=== PATIENT | male | born 1955 | race Caucasian/White ===

== ENCOUNTER 2020-08-25 18:17 | Emergency (ER) | payer BC, OTHER, SELFPAY ==
--- NOTE | 2020-08-25 19:10 | RAD ---
RIGHT ANKLE FIVE VIEWS: History: Injury with pain. FINDINGS: Intramedullary francie in the tibia transfixing distal tibia fracture. Old fibular fracture also noted. Degenerative changes at the ankle. No acute fracture identified. IMPRESSION: No evidence of acute fracture. POS: AGW
--- NOTE | 2020-08-25 21:01 | RAD ---
Right foot 3 views HISTORY: Injury. FINDINGS: Lisfranc joint alignment is anatomic. Plantar arch is maintained. Scattered mild degenerative changes. Old healed injury of the fourth metatarsal neck. Partially visualized internal fixation of the tibial shaft. No acute fracture, dislocation, or aggressive osseous erosions. Moderate sized plantar enthesophytes at the inferior aspect of the calcaneus. IMPRESSION : No acute abnormalities are demonstrated. Plantar heel spur.
[2020-08-25] MEDS ORDERED: Ketorolac Tromethamine 30 MG/ML VIAL ONE (21:11)
[2020-08-25] MEDS ORDERED: Morphine 10 MG/ML VIAL ONE (21:11)
== END 2020-08-25 21:44 | disposition home or self-care (01) ==
LOC: MADERS 18:17
DX: S93.601A Unspecified sprain of right foot, initial encounter (principal); E11.40 Type 2 diabetes mellitus with diabetic neuropathy, unspecified; E78.5 Hyperlipidemia, unspecified; I10 Essential (primary) hypertension; E78.00 Pure hypercholesterolemia, unspecified; F17.210 Nicotine dependence, cigarettes, uncomplicated; Z79.899 Other long term (current) drug therapy; W50.2XXA Accidental twist by another person, initial encounter
CPT/HCPCS: 96372; J1885; J2270

== ENCOUNTER 2020-09-07 18:26 | Emergency (ER) | payer SELFPAY ==
[2020-09-07] MEDS ORDERED: Bacitracin 1 PK ONE ×2 (20:32→20:37)
== END 2020-09-07 21:12 | disposition home or self-care (01) ==
LOC: MADERS 18:26
DX: S90.821A Blister (nonthermal), right foot, initial encounter (principal); R60.0 Localized edema; I20.9 Angina pectoris, unspecified; E11.9 Type 2 diabetes mellitus without complications; E78.5 Hyperlipidemia, unspecified; E78.00 Pure hypercholesterolemia, unspecified; I10 Essential (primary) hypertension; F17.210 Nicotine dependence, cigarettes, uncomplicated; Z85.46 Personal history of malignant neoplasm of prostate; Z79.899 Other long term (current) drug therapy; X50.9XXA Other and unspecified overexertion or strenuous movements or postures, initial encounter
CPT/HCPCS: 99283

== ENCOUNTER 2021-05-05 10:29 | Outpatient (CLI) | payer OTHER ==
[2021-05-05 10:59] LABS: #Basophils 0.1 thou/uL (0.0-0.2); #Eosinphils 0.4 thou/uL (0.0-0.7); #Lymphocytes 1.5 thou/uL (1.20-3.40); #Monocytes 0.7 thou/uL (0.11-0.59); #Neutrophils 7.3 thou/uL (1.40-6.50); %Basophils 1.4 % (0.0-1.0); %Eosinophils 3.9 % (0.0-10.0); %Lymphocytes 14.5 % (21.0-51.0); %Monocytes 7.4 % (0.0-10.0); %Neutrophils 72.8 % (42.0-75.0); Hemoglobin 13.6 g/dL (14.0-18.0); Mean Corpuscular HGB CONC 32.1 g/dL (32.0-36.0); Mean Corpuscular Volume 93.4 fL (78.0-98.0); Mean Platelet Volume 7.4 fL (7.4-10.4); Platelet Count 276 thou/uL (130-400); Red Blood Cell (RBC) Count 4.55 mill/uL (4.70-6.10)
[2021-05-05 11:14] LABS: Anion Gap 14 mmol/L (10-20); BUN (Urea Nitrogen) 33 mg/dL (8.4-25.7); Calc. Creatinine Clearance 0 mL/min (70-130); Calcium 9.6 mg/dL (7.8-10.44); Carbon Dioxide 20 mmol/L (23-31); Chloride 108 mmol/L (98-107); Glucose 151 mg/dL (80-115); Potassium 4.7 mmol/L (3.5-5.1); Sodium 137 mmol/L (136-145)
[2021-05-05 23:48] LABS: SARS-CoV-2 PCR by NAA Not Detected (NotDetected)
== END 2021-05-05 10:30 | disposition home or self-care (01) ==
LOC: MADLAB 10:29
PROVIDERS: ATTEND Podiatrist Foot & Ankle Surgery
DX: Z01.812 Encounter for preprocedural laboratory examination (principal); Z20.822 Contact with and (suspected) exposure to COVID-19
CPT/HCPCS: 36415; 80048; 85025; U0003; U0005

== ENCOUNTER 2022-10-28 11:40 | Inpatient (IN) | payer MEDICARE, OTHER ==
[2022-10-28] MEDS ORDERED: traMADol HCl 50 MG TAB PO PRN (15:37)
[2022-10-28] MEDS ORDERED: Bisacodyl 10 MG SUPP PR PRN (15:38)
[2022-10-28] MEDS ORDERED: Bisacodyl 5 MG TAB PO PRN (15:38)
[2022-10-28] MEDS ORDERED: Dextrose 50% Abboject 50 ML SYRINGE SLOW IVP PRN (15:40)
[2022-10-28] MEDS ORDERED: HumaLOG 300 UNITS/3 ML VIAL SC PRN ×2 (15:40)
[2022-10-28] MEDS: glipiZIDE 5 MG TAB PO SCH (17:16)
[2022-10-28] MEDS: metFORMIN 500 MG TAB PO SCH (17:16)
[2022-10-28] MEDS ORDERED: Emollient 15 oz bottle 450 ML, Triamcinolone Acetonide 200 MG TOP PRN (17:45)
[2022-10-28] MEDS: Atorvastatin Calcium 10 MG TAB PO SCH (20:34)
[2022-10-28] MEDS: Famotidine 20 MG TAB PO SCH (20:34)
[2022-10-28] MEDS: Gabapentin 300 MG CAP PO SCH (20:34)
[2022-10-28] MEDS: Sulfameth/Trimethoprim DS 800-160mg TAB PO SCH (20:35)
[2022-10-28] MEDS: Carvedilol 12.5 MG TAB PO SCH (20:35)
[2022-10-28] MEDS: Acetaminophen 325 MG TAB PO PRN (21:52)
[2022-10-29 05:29] LABS: Eosinophils 6 % (0-10); Hemoglobin 9.2 g/dL (14.0-18.0); Lymphocytes 13 % (21-51); MDiff Complete? YES; Mean Corpuscular HGB CONC 32.3 g/dL (32.0-36.0); Mean Corpuscular Hemoglobin 31.7 pg (27.0-31.0); Mean Corpuscular Volume 98.2 fl (78.0-98.0); Monocytes 9 % (0-10); Neutrophil 72 % (42-75); Platelet Count 201 10x3/uL (130-400); RBC Distribution Width 13.7 % (11.5-14.5); Red Blood Cell (RBC) Count 2.89 mill/uL (4.70-6.10); White Blood Cell (WBC) Count 8.1 10x3/uL (4.8-10.8)
[2022-10-29 05:36] LABS: ALT (SGPT) 13 U/L (8-55); AST (SGOT) 13 U/L (5-34); Albumin 2.9 g/dL (3.4-4.8); Alkaline Phosphatase 54 U/L (40-110); Anion Gap 14 mmol/L (10-20); BUN (Urea Nitrogen) 48 mg/dL (8.4-25.7); Bilirubin, Total 0.3 mg/dL (0.2-1.2); Calc. Creatinine Clearance 53 mL/min (70-130); Calcium 9.1 mg/dL (7.8-10.44); Carbon Dioxide 18 mmol/L (23-31); Chloride 112 mmol/L (98-107); Estimated GFR 41; Globulin 2.5 g/dL (2.4-3.5); Glucose 89 mg/dL (80-115); Potassium 5.2 mmol/L (3.5-5.1); Protein, Total 5.4 g/dL (5.8-8.1); Sodium 139 mmol/L (136-145)
[2022-10-29] MEDS: Famotidine 20 MG TAB PO SCH ×2 (08:38→20:03)
[2022-10-29] MEDS: glipiZIDE 5 MG TAB PO SCH ×2 (08:38→17:20)
[2022-10-29] MEDS: Sulfameth/Trimethoprim DS 800-160mg TAB PO SCH ×2 (08:39→20:03)
[2022-10-29] MEDS: Aspirin 81 mg Enteric Coated Tablet PO SCH (08:39)
[2022-10-29] MEDS: Gabapentin 300 MG CAP PO SCH ×3 (08:39→20:04)
[2022-10-29] MEDS: Clopidogrel Bisulfate 75 MG TAB PO SCH (08:40)
[2022-10-29] MEDS: Carvedilol 12.5 MG TAB PO SCH ×2 (08:40→20:03)
[2022-10-29] MEDS: metFORMIN 500 MG TAB PO SCH ×2 (08:40→17:20)
[2022-10-29] MEDS: Emollient 15 oz bottle 450 ML, Triamcinolone Acetonide 200 MG TOP SCH ×2 (08:40→20:06)
[2022-10-29] MEDS: Atorvastatin Calcium 10 MG TAB PO SCH (20:04)
[2022-10-29] MEDS: Acetaminophen 325 MG TAB PO PRN (22:09)
[2022-10-30] MEDS: glipiZIDE 5 MG TAB PO SCH ×2 (08:45→16:05)
[2022-10-30] MEDS: Sulfameth/Trimethoprim DS 800-160mg TAB PO SCH ×2 (08:46→20:40)
[2022-10-30] MEDS: Aspirin 81 mg Enteric Coated Tablet PO SCH (08:47)
[2022-10-30] MEDS: Famotidine 20 MG TAB PO SCH ×2 (08:47→20:40)
[2022-10-30] MEDS: Gabapentin 300 MG CAP PO SCH ×3 (08:48→20:40)
[2022-10-30] MEDS: Carvedilol 12.5 MG TAB PO SCH ×2 (08:48→20:40)
[2022-10-30] MEDS: Clopidogrel Bisulfate 75 MG TAB PO SCH (08:48)
[2022-10-30] MEDS: metFORMIN 500 MG TAB PO SCH ×2 (08:48→16:05)
[2022-10-30] MEDS: Emollient 15 oz bottle 450 ML, Triamcinolone Acetonide 200 MG TOP SCH ×2 (08:49→20:41)
[2022-10-30] MEDS: Atorvastatin Calcium 10 MG TAB PO SCH (20:40)
[2022-10-31] MEDS: Famotidine 20 MG TAB PO SCH ×2 (08:03→20:28)
[2022-10-31] MEDS: Clopidogrel Bisulfate 75 MG TAB PO SCH (08:03)
[2022-10-31] MEDS: Aspirin 81 mg Enteric Coated Tablet PO SCH (08:03)
[2022-10-31] MEDS: glipiZIDE 5 MG TAB PO SCH ×2 (08:03→17:06)
[2022-10-31] MEDS: Gabapentin 300 MG CAP PO SCH ×3 (08:03→20:28)
[2022-10-31] MEDS: Sulfameth/Trimethoprim DS 800-160mg TAB PO SCH ×2 (08:04→20:28)
[2022-10-31] MEDS: metFORMIN 500 MG TAB PO SCH ×2 (08:04→17:06)
[2022-10-31] MEDS: Emollient 15 oz bottle 450 ML, Triamcinolone Acetonide 200 MG TOP SCH ×2 (08:08→20:29)
[2022-10-31] MEDS: Carvedilol 12.5 MG TAB PO SCH ×2 (08:08→20:28)
[2022-10-31] MEDS: Acetaminophen 325 MG TAB PO PRN ×2 (09:32→21:34)
[2022-10-31] MEDS ORDERED: traMADol HCl 50 MG TAB PO PRN (13:19)
[2022-10-31] MEDS: Atorvastatin Calcium 10 MG TAB PO SCH (20:28)
[2022-11-01] MEDS: glipiZIDE 5 MG TAB PO SCH ×2 (09:36→17:14)
[2022-11-01] MEDS: Clopidogrel Bisulfate 75 MG TAB PO SCH (09:37)
[2022-11-01] MEDS: Gabapentin 300 MG CAP PO SCH ×3 (09:37→21:08)
[2022-11-01] MEDS: metFORMIN 500 MG TAB PO SCH ×2 (09:37→17:14)
[2022-11-01] MEDS: Sulfameth/Trimethoprim DS 800-160mg TAB PO SCH ×2 (09:37→21:09)
[2022-11-01] MEDS: Famotidine 20 MG TAB PO SCH ×2 (09:37→21:09)
[2022-11-01] MEDS: Carvedilol 12.5 MG TAB PO SCH ×2 (09:37→21:08)
[2022-11-01] MEDS: Aspirin 81 mg Enteric Coated Tablet PO SCH (09:38)
[2022-11-01] MEDS: Emollient 15 oz bottle 450 ML, Triamcinolone Acetonide 200 MG TOP SCH ×2 (09:38→21:10)
[2022-11-01] MEDS: Atorvastatin Calcium 10 MG TAB PO SCH (21:08)
[2022-11-01] MEDS: Acetaminophen 325 MG TAB PO PRN (23:55)
[2022-11-02] MEDS: Carvedilol 12.5 MG TAB PO SCH ×2 (08:38→20:53)
[2022-11-02] MEDS: glipiZIDE 5 MG TAB PO SCH ×2 (08:38→17:17)
[2022-11-02] MEDS: metFORMIN 500 MG TAB PO SCH ×2 (08:38→17:17)
[2022-11-02] MEDS: Famotidine 20 MG TAB PO SCH ×2 (08:38→20:53)
[2022-11-02] MEDS: Gabapentin 300 MG CAP PO SCH ×3 (08:38→20:53)
[2022-11-02] MEDS: Aspirin 81 mg Enteric Coated Tablet PO SCH (08:38)
[2022-11-02] MEDS: Sulfameth/Trimethoprim DS 800-160mg TAB PO SCH ×2 (08:38→20:53)
[2022-11-02] MEDS: Clopidogrel Bisulfate 75 MG TAB PO SCH (08:38)
[2022-11-02] MEDS: Emollient 15 oz bottle 450 ML, Triamcinolone Acetonide 200 MG TOP SCH ×2 (08:39→20:54)
[2022-11-02] MEDS: Atorvastatin Calcium 10 MG TAB PO SCH (20:52)
[2022-11-03] MEDS: glipiZIDE 5 MG TAB PO SCH ×2 (09:23→16:47)
[2022-11-03] MEDS: metFORMIN 500 MG TAB PO SCH ×2 (09:24→16:47)
[2022-11-03] MEDS: Famotidine 20 MG TAB PO SCH ×2 (09:24→20:56)
[2022-11-03] MEDS: Sulfameth/Trimethoprim DS 800-160mg TAB PO SCH ×2 (09:24→20:57)
[2022-11-03] MEDS: Aspirin 81 mg Enteric Coated Tablet PO SCH (09:24)
[2022-11-03] MEDS: Clopidogrel Bisulfate 75 MG TAB PO SCH (09:24)
[2022-11-03] MEDS: Carvedilol 12.5 MG TAB PO SCH ×2 (09:24→20:56)
[2022-11-03] MEDS: Gabapentin 300 MG CAP PO SCH ×3 (09:24→20:56)
[2022-11-03] MEDS: Emollient 15 oz bottle 450 ML, Triamcinolone Acetonide 200 MG TOP SCH ×2 (09:25→20:57)
[2022-11-03 14:58] VITALS: BMI 29.0
[2022-11-03] MEDS: Atorvastatin Calcium 10 MG TAB PO SCH (20:56)
[2022-11-04] MEDS: Carvedilol 12.5 MG TAB PO SCH (08:32)
[2022-11-04] MEDS: Sulfameth/Trimethoprim DS 800-160mg TAB PO SCH ×2 (08:32→17:14)
[2022-11-04] MEDS: Clopidogrel Bisulfate 75 MG TAB PO SCH (08:33)
[2022-11-04] MEDS: Gabapentin 300 MG CAP PO SCH ×2 (08:33→17:15)
[2022-11-04] MEDS: Famotidine 20 MG TAB PO SCH (08:33)
[2022-11-04] MEDS: glipiZIDE 5 MG TAB PO SCH ×2 (08:33→17:15)
[2022-11-04] MEDS: metFORMIN 500 MG TAB PO SCH ×2 (08:33→17:15)
[2022-11-04] MEDS: Aspirin 81 mg Enteric Coated Tablet PO SCH (08:33)
[2022-11-04] MEDS: Emollient 15 oz bottle 450 ML, Triamcinolone Acetonide 200 MG TOP SCH (08:34)
[2022-11-04 13:54] LABS: Anion Gap 11 mmol/L (10-20); BUN (Urea Nitrogen) 47 mg/dL (8.4-25.7); Calc. Creatinine Clearance 45 mL/min (70-130); Calcium 8.5 mg/dL (7.8-10.44); Carbon Dioxide 16 mmol/L (23-31); Chloride 113 mmol/L (98-107); Estimated GFR 35; Glucose 136 mg/dL (80-115); Potassium 5.3 mmol/L (3.5-5.1); Sodium 135 mmol/L (136-145)
[2022-11-04 16:46] VITALS: BP 143/73; TEMP 98.1
== END 2022-11-04 19:45 | disposition home or self-care (01) | DRG 603 ==
LOC: MADMS 13:42
PROVIDERS: ADMIT Family Medicine; ATTEND Family Medicine
DX: L03.115 Cellulitis of right lower limb (principal); I13.0 Hypertensive heart and chronic kidney disease with heart failure and stage 1 through stage 4 chronic kidney disease, or unspecified chronic kidney disease; N17.9 Acute kidney failure, unspecified; R53.1 Weakness; L02.415 Cutaneous abscess of right lower limb; S81.801A Unspecified open wound, right lower leg, initial encounter; I50.9 Heart failure, unspecified; E78.5 Hyperlipidemia, unspecified; E11.22 Type 2 diabetes mellitus with diabetic chronic kidney disease; B95.62 Methicillin resistant Staphylococcus aureus infection as the cause of diseases classified elsewhere; N18.31 Chronic kidney disease, stage 3a; R53.81 Other malaise; E11.51 Type 2 diabetes mellitus with diabetic peripheral angiopathy without gangrene; F17.210 Nicotine dependence, cigarettes, uncomplicated; Z79.82 Long term (current) use of aspirin; Z79.899 Other long term (current) drug therapy; Z89.431 Acquired absence of right foot; Z98.890 Other specified postprocedural states; Z79.84 Long term (current) use of oral hypoglycemic drugs
CPT/HCPCS: 36415; 36416; 80048; 80053; 85025; J1650

== ENCOUNTER 2022-11-30 10:32 | Emergency (ER) | payer MEDICARE, OTHER ==
[~2022-11-30 10:32] MED LIST: Sodium Chloride 0.9% 100 ML BAG ONE
[2022-11-30] MEDS ORDERED: Vancomycin 1 GM VIAL ONE (12:13)
[2022-11-30 13:03] LABS: #Basophils 0.2 thou/uL (0.0-0.2); #Eosinphils 0.2 thou/uL (0.0-0.7); #Lymphocytes 0.9 thou/uL (1.20-3.40); #Monocytes 0.7 thou/uL (0.11-0.59); #Neutrophils 7.3 thou/uL (1.40-6.50); %Eosinophils 1.6 % (0.0-10.0); %Lymphocytes 10.2 % (21.0-51.0); %Monocytes 7.3 % (0.0-10.0); %Neutrophils 78.9 % (42.0-75.0); Hemoglobin 11.9 g/dL (14.0-18.0); Mean Corpuscular HGB CONC 32.6 g/dL (32.0-36.0); Mean Corpuscular Hemoglobin 31.9 pg (27.0-31.0); Mean Corpuscular Volume 97.8 fl (78.0-98.0); Mean Platelet Volume 8.7 fL (7.4-10.4); Platelet Count 296 10x3/uL (130-400); RBC Distribution Width 14.1 % (11.5-14.5); Red Blood Cell (RBC) Count 3.73 mill/uL (4.70-6.10); White Blood Cell (WBC) Count 9.3 10x3/uL (4.8-10.8)
[2022-11-30 14:03] LABS: ALT (SGPT) 12 U/L (8-55); AST (SGOT) 12 U/L (5-34); Albumin 3.3 g/dL (3.4-4.8); Alkaline Phosphatase 63 U/L (40-110); Anion Gap 13 mmol/L (10-20); BUN (Urea Nitrogen) 26 mg/dL (8.4-25.7); Bilirubin, Total 0.4 mg/dL (0.2-1.2); Calc. Creatinine Clearance 0 mL/min (70-130); Calcium 9.1 mg/dL (7.8-10.44); Carbon Dioxide 21 mmol/L (23-31); Chloride 107 mmol/L (98-107); Estimated GFR 46; Globulin 3.2 g/dL (2.4-3.5); Glucose 231 mg/dL (80-115); Potassium 4.5 mmol/L (3.5-5.1); Protein, Total 6.5 g/dL (5.8-8.1); Sodium 136 mmol/L (136-145)
[2022-11-30] MEDS ORDERED: Piperacillin/Tazobactam 4.5 GM VIAL ONE (14:11)
== END 2022-11-30 17:43 | disposition short-term general hospital (02) ==
LOC: MADERS 10:32
DX: T81.49XA Infection following a procedure, other surgical site, initial encounter (principal); L02.415 Cutaneous abscess of right lower limb; I10 Essential (primary) hypertension; E11.9 Type 2 diabetes mellitus without complications; E78.00 Pure hypercholesterolemia, unspecified; F17.210 Nicotine dependence, cigarettes, uncomplicated; Z79.82 Long term (current) use of aspirin; Z79.84 Long term (current) use of oral hypoglycemic drugs; Z79.899 Other long term (current) drug therapy
CPT/HCPCS: 80053; 83605; 85025; 87070; 87077; 87186; 87205; 96365; 96367; J2543; J3370; J3490; J7070